=== PATIENT | female | born 1950 ===

== ENCOUNTER 2017-09-27 08:12 | Outpatient (CLI) | payer MEDICARE ==
--- NOTE | 2017-09-27 10:45 | Ultrasound Report ---
BILATERAL DIGITAL DIAGNOSTIC MAMMOGRAM with CAD and RIGHT BREAST ULTRASOUND: 09/27/17 CLINICAL: Right breast pain. COMPARISON:None. These are baseline studies. FINDINGS: The breasts are on this entirely fatty.No mass, architectural distortion or suspicious calcifications. Ultrasound of the right breast (including all four quadrants and the retroareolar area) demonstrated a single benign cyst o'clock 11 cm from the nipple. It measures 4 x 3 x 4 mm. No other cyst and no solid mass. Ultrasound of the right axilla demonstrated lymph nodes with central fat a benign morphology and no suspicious lymph nodes. IMPRESSION: Negative mammogram.A single 4 mm cyst at 9 o'clock right breast. No other explanation for right breast pain. BI-RADS CATEGORY: 2 -- Benign RECOMMENDATION: Clinical followup and routine mammographic screening in one year. COMMENT: Patient follow-up letters are generated by our [employer] application.
== END 2017-09-27 08:13 | disposition home or self-care (01) ==
LOC: SPVWC 08:12
PROVIDERS: ATTEND Internal Medicine
DX: N60.01 Solitary cyst of right breast (principal)
CPT/HCPCS: 77066